=== PATIENT | female | born 1945 | race African-American/Black ===

== ENCOUNTER 2018-02-24 12:17 | Observation (INO) ==
[2018-02-24 13:25] LABS: Baso # (Auto) 0.1 th/mm3 (0.0-0.2); Baso % (Auto) 0.7 % (0.0-2.0); Eos # (Auto) 0.1 th/mm3 (0.0-0.4); Eos % (Auto) 1.7 % (0.0-4.0); Hematocrit 29.3 % (35.0-46.0); Lymph # (Auto) 2.6 th/mm3 (1.0-4.8); Mean Corpuscular HGB Conc 34.3 % (32.0-36.0); Mean Corpuscular Hemoglobin 33.3 pg (27.0-34.0); Mean Platelet Volume 8.2 fL (7.0-11.0); Mono # (Auto) 0.5 th/mm3 (0.0-0.9); Mono % (Auto) 7.3 % (0.0-8.0); Neut # (Auto) 3.5 th/mm3 (1.8-7.7); Neut % (Auto) 52.3 % (16.0-70.0); Platelet Count 205 th/mm3 (150-450); Red Blood Count 3.02 mil/mm3 (4.00-5.30); Red Cell Distribution Width 12.7 % (11.6-17.2); White Blood Count 6.8 th/mm3 (4.0-11.0)
[2018-02-24 13:48] LABS: Alanine Aminotransferase 15 U/L (10-53); Albumin 3.3 g/dL (3.4-5.0); Anion Gap 5 meq/L (5-15); Aspartate Aminotransferase 19 U/L (15-37); Blood Urea Nitrogen 25 mg/dL (7-18); Calcium 8.7 mg/dL (8.5-10.1); Chloride 106 meq/L (98-107); Glomerular Filtration Rate 42 mL/min (>89); Glucose,Random 121 mg/dL (74-106); Sodium 144 meq/L (136-145)
[2018-02-24 13:52] LABS: Alkaline Phosphatase 92 U/L (45-117); Total Protein 7.5 g/dL (6.4-8.2)
--- NOTE | 2018-02-24 13:55 | ED ---
HPI General Chief complaint: Chest Pain Stated complaint: chest pain Time Seen by Provider: 02/24/18 13:46 History of Present Illness HPI narrative: 72-year-old female with history of hypertension, diabetes, presents via EMS for evaluation of chest pain. Symptoms started at approximately 11:30 AM today while she was eating fast food with family members. She describes it as a sharp substernal/right-sided chest pain that radiated into the right arm. Symptoms lasted for approximately 30 minutes and then resolved spontaneously. Currently asymptomatic. She denies any dizziness , lightheadedness, shortness of breath, diaphoresis, nausea, vomiting, abdominal pain. Symptoms were moderate, no obvious aggravating or relieving factors. She has never experienced that type of pain before. She reports that she is allergic to aspirinshe reports that her dentist in the past told her that she is allergic to aspirin and she does not want to take any aspirin. She denies any known personal history of coronary artery disease however she does report positive family history maternally. She has no other complaints at this time. Related Data Allergies Allergy/AdvReac Type Severity Reaction Status Date / Time acetaminophen [From Tylenol] Allergy Rash Verified 02/24/18 12:29 Review of Systems ROS: all other systems reviewed are negative [facility] Social History Social History Substance History: No History of Abuse Smoking Status: Never smoker How Often Do You Have a Drink Containing Alcohol: Monthly or less Recent Travel in [facility] within the Last 8 Weeks: No Recent Out of Country Travel within the Last 8 Weeks: No Exam Narrative Exam Narrative: GENERAL: Pleasant well-developed well-nourished female no acute distress SKIN: Warm and dry. HEAD: Atraumatic. Normocephalic. EYES: Pupils equal and round. No scleral icterus. No injection or drainage. ENT: No nasal bleeding or discharge. Mucous membranes pink and moist. NECK: Trachea midline. No JVD. CARDIOVASCULAR: Regular rate and rhythm. No murmur appreciated. RESPIRATORY: No accessory muscle use. Clear to auscultation. Breath sounds equal bilaterally. GASTROINTESTINAL: Abdomen soft, non-tender, nondistended. Hepatic and splenic margins not palpable. MUSCULOSKELETAL: No obvious deformities. No clubbing. No cyanosis. No edema. NEUROLOGICAL: Awake and alert. No obvious cranial nerve deficits. Motor grossly within normal limits. Normal speech. PSYCHIATRIC: Appropriate mood and affect; insight and judgment normal. Course Initial Documented Vital Signs Temperature 98.5 F 02/24/18 12:20 Pulse Rate 98 H 02/24/18 12:20 Respiratory Rate 18 02/24/18 12:20 Blood Pressure 149/76 H 02/24/18 12:20 Pulse Oximetry 95 02/24/18 12:20 Last Documented Vital Signs Temperature 98.5 F 02/24/18 12:20 Pulse Rate 63 02/24/18 14:12 Respiratory Rate 23 02/24/18 14:12 Blood Pressure 184/77 H 02/24/18 14:12 Pulse Oximetry 100 02/24/18 14:12 Medical Decision Making MDM Narrative Medical decision making narrative: The patient was initially seen on the ambulance hallway. An EKG has been obtained revealing sinus rhythm with left bundle branch block, consistent with previous EKG in 2016. Lab work, chest x- ray been ordered. The patient's initial troponin is negative. Hemoglobin is 10. Potassium is 3, 40 mg oral potassium chloride ordered. BUN 25, creatinine 1.47. The patient's pain was atypical however she has a heart score of 5 and therefore given her risk factors the plan will be to admit her into the chest pain center for serial cardiac enzymes and rule out purposes. She is agreeable. Medical Screen Exam Complete: Yes Emergency Medical Condition: Yes Differential Diagnosis Differential Diagnosis: Atypical chest pain, acute coronary syndrome, angina, pneumothorax, hemothorax, costochondritis, gastritis, biliary colic, pancreatitis Lab Data Result diagrams: 02/24/18 12:50 02/24/18 12:50 Lab Results 02/24/18 02/24/18 02/24/18 Range/Units 12:50 12:50 12:50 WBC 6.8 (4.0-11.0) th/mm3 RBC 3.02 L (4.00-5.30) mil/mm3 Hgb 10.0 L (11.6-15.3) gm/dL Hct 29.3 L (35.0-46.0) % MCV 97.0 (80.0-100.0) fL MCH 33.3 (27.0-34.0) pg MCHC 34.3 (32.0-36.0) % RDW 12.7 (11.6-17.2) % Plt Count 205 (150-450) th/mm3 MPV 8.2 (7.0-11.0) fL Neut % (Auto) 52.3 (16.0-70.0) % Lymph % (Auto) 38.0 (9.0-44.0) % [place] % (Auto) 7.3 (0.0-8.0) % Eos % (Auto) 1.7 (0.0-4.0) % Baso % (Auto) 0.7 (0.0-2.0) % Neut # (Auto) 3.5 (1.8-7.7) th/mm3 Lymph # (Auto) 2.6 (1.0-4.8) th/mm3 [place] # (Auto) 0.5 (0.0-0.9) th/mm3 Eos # (Auto) 0.1 (0.0-0.4) th/mm3 Baso # (Auto) 0.1 (0.0-0.2) th/mm3 WBC Differential . Differential Comment Auto diff final Sodium 144 (136-145) meq/L Potassium 3.0 L (3.5-5.1) meq/L Chloride 106 (98-107) meq/L Carbon Dioxide 33.0 H (21.0-32.0) meq/L Anion Gap 5 (5-15) meq/L BUN 25 H (7-18) mg/dL Creatinine 1.47 H (0.50-1.00) mg/dL Estimated GFR 42 L (>89) mL/min Random Glucose 121 H (74-106) mg/dL Calcium 8.7 (8.5-10.1) mg/dL Magnesium 1.8 (1.5-2.5) mg/dL Total Bilirubin 0.7 (0.2-1.0) mg/dL AST 19 (15-37) U/L ALT 15 (10-53) U/L Alkaline Phosphatase 92 (45-117) U/L Troponin I Less than 0.02 L (0.02-0.05) ng/mL Total Protein 7.5 (6.4-8.2) g/dL Albumin 3.3 L (3.4-5.0) g/dL Lipase 100 (73-393) U/L Imaging Data Radiologist's impression: Chest X-Ray 02/24/18 13:47 CONCLUSION: Negative examination. Discharge Plan Discharge Disposition Patient Disposition: 30 Still Patient Discharge Condition Condition: Stable Discharge Details Diagnosis: Atypical chest pain, Hypokalemia Physicians Team ED Provider: Dennis Hong ED Midlevel Provider: Ryan Hannah Discharge Instructions Patient Printed Instructions: Chest Pain (ED) Status ED Status: With Doctor
--- NOTE | 2018-02-24 14:09 | XR ---
EXAM DATE: 02/24/2018 2:06 PM EST AGE/SEX: 72 years / Female INDICATIONS: Chest pain. CLINICAL DATA: This is the patient's initial encounter. Patient reports that signs and symptoms have been present for 1 day and indicates a pain score of Nonresponsive. MEDICAL/SURGICAL HISTORY: Non-responsive. Non-responsive. COMPARISON: No prior exams available for comparison. FINDINGS: A single AP view of the chest demonstrates the lungs to be symmetrically aerated without evidence of mass, infiltrate or effusion. The cardiomediastinal contours are unremarkable. Osseous structures a re intact. CONCLUSION: Negative examination. Electronically signed by: Josafat Jane MD 02/24/2018 2:07 PM EST
[2018-02-24 14:10] LABS: Magnesium 1.8 mg/dL (1.5-2.5)
[2018-02-24] MEDS ORDERED: Acetaminophen 500 MG Tablet PO PRN (15:05)
--- NOTE | 2018-02-24 15:52 | P.HPCA ---
History of Present Illness Primary Care Physician: Kesha Loyd DO Chief Complaint: Chest pain History of Present Illness: 72-year-old female with history of hypertension, left bundle branch block, hyperlipidemia, and GERD presents emergency room for further evaluation of nonexertional, sudden chest pain. Onset noon, after eating lunch. Location substernal and right anterior chest. Radiation to right shoulder/elbow. Characterizes as sharp. Moderate in severity. No associated symptoms of nausea, vomiting, dyspnea, or diaphoresis. Duration of intense pain 5-10 minutes, gradually and completely resolving after 15 minutes. No precipitating or relieving factors. Denies similar pain in the past. No further chest discomfort. No known heart disease. Denied burning sensation or sour taste. No recent illness or injury. Patient required redirection when obtaining history, looks to family members for answers of many questions. Daughter and brother at bedside assisting with medical history. Past cardiac testing No recent cardiac testing. No records of Lexiscan in [place] records. Does not follow with a bottle tester since Loop recorder removed in 2015. 11/23/2013 Echocardiogram-Estimated ejection fraction 55-60%. Systolic function normal. 11/22/2013 Carotids US-mild plaquing with no evidence of a hemodynamically significant lesion. Loop recorder placed 2013, removed 2015 Social history Known hypertension and hyperlipidemia. Reports "borderline" diabetes. No known coronary artery disease. Lifelong non-smoker. No alcohol or recreational drug use. Lives with daughter. Endorses having a large supportive family. Family history Noncontributory for early onset cardiovascular disease. Mother age 64-[place] Brother CABG age 68 - Diagnosis (1) Atypical chest pain (2) Hypertension (3) Hyperlipidemia (4) Anemia (5) Hypokalemia (6) Renal insufficiency Review of Systems All other systems reviewed negative except as stated in HPI PMFSH - History History Provided By: Patient, Family Member - Medical History Medical History: Medical History (Last Updated 02/24/18 @ 16:10 by AMALIA Agustin) Anemia Chronic back pain Chronic kidney disease GERD (gastroesophageal reflux disease) H/O: hysterectomy Hyperlipidemia Hypertension Left bundle branch block (LBBB) Osteoarthritis - Family History Family History: Family History (Last Updated 02/24/18 @ 16:10 by AMALIA Agustin) Mother Myocardial infarction Brother S/P CABG x 3 - Social History I have reviewed the patient's Social History: Yes - Tobacco History Second Hand Smoke Exposure: No Tobacco Use In Past 30 Days: No Smoking Status: Never smoker - Alcohol History How Often Do You Have a Drink Containing Alcohol: Monthly or less - Substance Use History Substance History: No History of Abuse - Travel History Recent Travel in the [place] Within the Last 8 Weeks: No Recent Travel Out of the Country Within the Last 8 Weeks: No - Immunization History Tetanus Immunization: <5 Years Medications and Allergies Active Medications: Active Medications Acetaminophen (Tylenol) 500 mg PO Q4H PRN PRN Reason: HEADACHE Nitroglycerin (Nitrostat Sl) 0.4 mg SL Q5M PRN PRN Reason: CHEST PAIN Ondansetron HCl (Zofran Inj) 4 mg IV.PUSH Q6H PRN PRN Reason: NAUSEA Sodium Chloride (Ns Flush) 2 ml IV.FLUSH BID JENNIFER Sodium Chloride (Ns Flush) 2 ml IV.FLUSH UNSCH PRN PRN Reason: FLUSH AFTER USING IV ACCESS Allergies Allergy/AdvReac Type Severity Reaction Status Date / Time No Known Allergies Allergy Verified 02/24/18 14:53 Home Medications Medication Instructions Recorded Confirmed Type amlodipine 10 mg PO DAILY 02/24/18 02/24/18 History donepezil 10 mg PO DAILY 02/24/18 02/24/18 History ergocalciferol (vitamin D2) 50,000 unit PO QWEEK 02/24/18 02/24/18 History [Vitamin D2] memantine 10 mg PO BID 02/24/18 02/24/18 History pantoprazole 40 mg PO DAILY 02/24/18 02/24/18 History potassium chloride 20 meq PO DAILY 02/24/18 02/24/18 History simvastatin 40 mg PO QPM 02/24/18 02/24/18 History trazodone 50 mg PO BID 02/24/18 02/24/18 History triamterene-hydrochlorothiazid 1 tab PO DAILY 02/24/18 02/24/18 History Exam Vital signs: Vital Signs 02/24/18 12:20 02/24/18 14:12 Temperature 98.5 F Pulse Rate 98 H 63 Respiratory Rate 18 23 Blood Pressure 149/76 H 184/77 H Pulse Oximetry 95 100 Intake & Output 02/23/18 02/24/18 02/24/18 18:59 06:59 18:59 Weight 220 kg Narrative: GENERAL: Alert WN, WD, NAD, pleasant, elderly obese -[place] female with some short-term memory loss HEAD: NC, AT EYES: Sclera clear, conjunctiva without injection, pupils equal and round ENT: Mucous membranes pink and moist, upper plate, lower dentures NECK: Supple, no masses, trachea midline CV: RRR, without murmur, rub, gallop, no JVD, S1-S2 no S3-S4. No carotid bruits. Chest wall nontender with palpation. RESP: Clear lungs throughout bilateral, no crackles, wheeze, rhonchi, symmetrical chest rise, nonlabored, able to speak in full sentences ABD: Soft, NT, ND, no masses, positive bowel tones BACK: No CVAT EXT: Pulses +2x4, no dependent edema MS: Normal tone x4 extremities, nontender, no obvious deformities, full range of motion NEURO: CN II through CN XII grossly intact, motor strength 5/5 PSYCH: A+O x3, pleasant affect, appropriate speech, appropriate mood, questionable insight and judgment, forgetful, difficult providing details of recent symptoms, able to recall past hospital visits with better detail SKIN: Normal turgor, normal texture, no lesions, no rashes, brisk cap refill Results 02/24/18 12:50 02/24/18 12:50 Cardiac Enzymes 02/24/18 Range/Units 12:50 AST 19 (15-37) U/L Troponin I Less than 0.02 L (0.02-0.05) ng/mL CBC 02/24/18 Range/Units 12:50 WBC 6.8 (4.0-11.0) th/mm3 RBC 3.02 L (4.00-5.30) mil/mm3 Hgb 10.0 L (11.6-15.3) gm/dL Hct 29.3 L (35.0-46.0) % Plt Count 205 (150-450) th/mm3 Neut # (Auto) 3.5 (1.8-7.7) th/mm3 Lymph # (Auto) 2.6 (1.0-4.8) th/mm3 [place] # (Auto) 0.5 (0.0-0.9) th/mm3 Eos # (Auto) 0.1 (0.0-0.4) th/mm3 Baso # (Auto) 0.1 (0.0-0.2) th/mm3 Comprehensive Metabolic Panel 02/24/18 Range/Units 12:50 Sodium 144 (136-145) meq/L Potassium 3.0 L (3.5-5.1) meq/L Chloride 106 (98-107) meq/L Carbon Dioxide 33.0 H (21.0-32.0) meq/L BUN 25 H (7-18) mg/dL Creatinine 1.47 H (0.50-1.00) mg/dL Calcium 8.7 (8.5-10.1) mg/dL AST 19 (15-37) U/L ALT 15 (10-53) U/L Alkaline Phosphatase 92 (45-117) U/L Total Protein 7.5 (6.4-8.2) g/dL Albumin 3.3 L (3.4-5.0) g/dL Intake and Output 02/24/18 02/24/18 02/24/18 06:59 14:59 22:59 Other: Weight 220 kg Patient Weight 02/25/18 06:59 Weight 220 kg - Imaging and Cardiology Imaging: Impressions Chest X-Ray 02/24/18 13:47 CONCLUSION: Negative examination. EKG interpretations - EKG EKG results cardiology: sinus rhythm (L BBB (not new)) Caprini VTE Risk Assessment Caprini VTE Risk Assessment: Moderate/High Risk (score >= 2) Caprini Risk Assessment Model: Point Value = 1 Point Value = 2 Point Value = 3 Point Value = 5 Age 41-60 Minor surgery BMI > 25 kg/m2 Swollen legs Varicose veins or History of unexplained or recurrent spontaneous Oral contraceptives or hormone replacement Sepsis (< 1 month) Serious lung disease, including pneumonia (< 1 month) Abnormal pulmonary function Acute myocardial infarction Congestive heart failure (< 1 month) History of inflammatory bowel disease Medical patient at bed rest Age 61-74 Arthroscopic surgery Major open surgery (> 45 min) Laparoscopic surgery (> 45 min) Malignancy Confined to bed (> 72 hours) Immobilizing plaster cast Central venous access Age >= 75 History of VTE Family history of VTE Factor V Leiden Prothrombin [id number] Lupus anticoagulant Anticardiolipin antibodies Elevated serum homocysteine Heparin-induced thrombocytopenia Other congenital or acquired thrombophilia Stroke (< 1 month) Elective arthroplasty Hip, pelvis, or leg fracture Acute spinal cord injury (< 1 month) Prophylaxis Regimen: Total Risk Factor Score Risk Level Prophylaxis Regimen 0-1 Low Early ambulation 2 Moderate Order ONE of the following: *Sequential Compression Device (SCD) *Heparin 5000 units SQ BID 3-4 Higher Order ONE of the following medications: *Heparin 5000 units SQ TID *Enoxaparin/Lovenox 40 mg SQ daily (WT < 150 kg, CrCl > 30 mL/min) *Enoxaparin/Lovenox 30 mg SQ daily (WT < 150 kg, CrCl > 10-29 mL/min) *Enoxaparin/Lovenox 30 mg SQ BID (WT < 150 kg, CrCl > 30 mL/min) AND/OR *Sequential Compression Device (SCD) 5 or more Highest Order ONE of the following medications: *Heparin 5000 units SQ TID (Preferred with Epidurals) *Enoxaparin/Lovenox 40 mg SQ daily (WT < 150 kg, CrCl > 30 mL/min) *Enoxaparin/Lovenox 30 mg SQ daily (WT < 150 kg, CrCl > 10-29 mL/min) *Enoxaparin/Lovenox 30 mg SQ BID (WT < 150 kg, CrCl > 30 mL/min) AND *Sequential Compression Device (SCD) Assessment and Plan - Assessment (1) Atypical chest pain Code(s): R07.89 - Other chest pain Status: Acute Plan: Admitted to chest pain center. Monitor on telemetry. Rule out ACS with 3 sets of EKGs and cardiac enzymes. Will be seen and evaluated by Dr. Ute Plascencia in morning. History of left bundle branch block. If cardiac testing recommended will require Lexiscan. This will be determined after evaluation by bottle tester. Discussed plan of care with patient, daughter, and brother was at bedside and all agreeable to plan of care. (2) Hypertension Code(s): I10 - Essential (primary) hypertension Status: Chronic Plan: Continue amlodipine. Continue to monitor. (3) Hyperlipidemia Code(s): E78.5 - Hyperlipidemia, unspecified Status: Chronic Plan: Continue simvastatin. (4) Anemia Code(s): D64.9 - Anemia, unspecified Status: Chronic Plan: Stable, compared with previous labs hemoglobin hematocrit improved. Anemia likely related to disease of chronic illness, follow up with primary care provider. (5) Hypokalemia Code(s): E87.6 - Hypokalemia Status: Acute Plan: 40 Meq KCL given in ER. (6) Renal insufficiency Code(s): N28.9 - Disorder of kidney and ureter, unspecified Status: Chronic Plan: Documented history of chronic kidney disease. Follow up with primary care provider as previously instructed. (2) Hypertension Qualifiers: Hypertension type: unspecified Qualified Code(s): I10 - Essential (primary) hypertension (3) Hyperlipidemia Qualifiers: Hyperlipidemia type: unspecified Qualified Code(s): E78.5 - Hyperlipidemia, unspecified (4) Anemia Qualifiers: Anemia type: unspecified type Qualified Code(s): D64.9 - Anemia, unspecified
[2018-02-24 16:52] LABS: Creatine Kinase 203 U/L (26-192)
[2018-02-24 17:04] LABS: CKMB Percent 0.5 % (0.0-4.0)
[2018-02-24 20:58] LABS: Creatine Kinase 168 U/L (26-192)
--- NOTE | 2018-02-25 08:37 | P.PNCA ---
Subjective Interval history: Offers no complaints. No further chest discomfort. Medications and Allergies Active Medications: Active Medications Acetaminophen (Tylenol) 500 mg PO Q4H PRN PRN Reason: HEADACHE Amlodipine Besylate (Norvasc) 10 mg PO DAILY [facility] Clonidine HCl (Catapres) 0.1 mg PO Q6H PRN PRN Reason: SYS BP GREATER THAN 180 MMHG Last Admin: 02/25/18 06:12 Dose: 0.1 mg Donepezil HCl (Aricept) 10 mg PO DAILY [facility] Memantine (Namenda) 10 mg PO BID [facility] Last Admin: 02/24/18 22:25 Dose: 10 mg Nitroglycerin (Nitrostat Sl) 0.4 mg SL Q5M PRN PRN Reason: CHEST PAIN Ondansetron HCl (Zofran Inj) 4 mg IV.PUSH Q6H PRN PRN Reason: NAUSEA Pantoprazole Sodium (Protonix) 40 mg PO DAILY [facility] Potassium Chloride (K-Dur) 20 meq PO DAILY [facility] Pravastatin Sodium (Pravachol) 80 mg PO QPM [facility] Last Admin: 02/24/18 18:37 Dose: 80 mg Sodium Chloride (Ns Flush) 2 ml IV.FLUSH BID [facility] Last Admin: 02/24/18 22:24 Dose: 2 ml Sodium Chloride (Ns Flush) 2 ml IV.FLUSH UNSCH PRN PRN Reason: FLUSH AFTER USING IV ACCESS Allergies Allergy/AdvReac Type Severity Reaction Status Date / Time No Known Allergies Allergy Verified 02/24/18 14:53 Home Medications Medication Instructions Recorded Confirmed Type amlodipine 10 mg PO DAILY 02/24/18 02/24/18 History donepezil 10 mg PO DAILY 02/24/18 02/24/18 History ergocalciferol (vitamin D2) 50,000 unit PO QWEEK 02/24/18 02/24/18 History [Vitamin D2] memantine 10 mg PO BID 02/24/18 02/24/18 History pantoprazole 40 mg PO DAILY 02/24/18 02/24/18 History potassium chloride 20 meq PO DAILY 02/24/18 02/24/18 History simvastatin 40 mg PO QPM 02/24/18 02/24/18 History trazodone 50 mg PO BID 02/24/18 02/24/18 History triamterene-hydrochlorothiazid 1 tab PO DAILY 02/24/18 02/24/18 History Physical Exam Vital signs: Vital Signs 02/24/18 12:20 02/24/18 14:12 02/24/18 15:00 Temperature 98.5 F Pulse Rate 98 H 63 56 L Respiratory Rate 18 23 18 Blood Pressure 149/76 H 184/77 H 173/77 H Pulse Oximetry 95 100 100 02/24/18 20:00 02/24/18 23:54 02/25/18 04:00 Temperature 98.3 F 97.6 F Pulse Rate 63 63 69 Respiratory Rate 16 17 17 Blood Pressure 151/92 H 175/78 H 193/97 H Pulse Oximetry 100 99 100 02/25/18 07:25 Temperature 98.7 F Pulse Rate 60 Respiratory Rate 16 Blood Pressure 138/63 Pulse Oximetry 100 Intake & Output 02/24/18 02/25/18 02/25/18 18:59 06:59 18:59 Weight 83.915 kg Other: Post Void Residual 0 Weight On Admission 83.915 kg - Constitutional no acute distress, cooperative - Routine HEENT Exam Head: Present: normocephalic, atraumatic - Routine Respiratory Exam Present: CTA bilaterally. Absent: rhonchi, stridor, wheezes, crackles - Routine Cardiovascular Exam Present: RRR. Absent: murmur, gallop, rubs - Routine Abdominal Exam Present: soft, normoactive bowel sounds Results 02/24/18 12:50 02/24/18 12:50 Cardiac Enzymes 02/24/18 02/24/18 02/24/18 Range/Units 12:50 15:50 19:55 AST 19 (15-37) U/L CK-MB (CK-2) Less than 1.0 (0.5-3.6) ng/mL Troponin I Less than 0.02 L Less than 0.02 L Less than 0.02 L (0.02-0.05) ng/mL CBC 02/24/18 Range/Units 12:50 WBC 6.8 (4.0-11.0) th/mm3 RBC 3.02 L (4.00-5.30) mil/mm3 Hgb 10.0 L (11.6-15.3) gm/dL Hct 29.3 L (35.0-46.0) % Plt Count 205 (150-450) th/mm3 Neut # (Auto) 3.5 (1.8-7.7) th/mm3 Lymph # (Auto) 2.6 (1.0-4.8) th/mm3 [place] # (Auto) 0.5 (0.0-0.9) th/mm3 Eos # (Auto) 0.1 (0.0-0.4) th/mm3 Baso # (Auto) 0.1 (0.0-0.2) th/mm3 Comprehensive Metabolic Panel 02/24/18 Range/Units 12:50 Sodium 144 (136-145) meq/L Potassium 3.0 L (3.5-5.1) meq/L Chloride 106 (98-107) meq/L Carbon Dioxide 33.0 H (21.0-32.0) meq/L BUN 25 H (7-18) mg/dL Creatinine 1.47 H (0.50-1.00) mg/dL Calcium 8.7 (8.5-10.1) mg/dL AST 19 (15-37) U/L ALT 15 (10-53) U/L Alkaline Phosphatase 92 (45-117) U/L Total Protein 7.5 (6.4-8.2) g/dL Albumin 3.3 L (3.4-5.0) g/dL Intake and Output 02/24/18 02/25/18 02/25/18 22:59 06:59 14:59 Other: Post Void Residual 0 Weight 83.915 kg Weight On Admission 83.915 kg - Imaging and Cardiology Imaging: Impressions Chest X-Ray 02/24/18 13:47 CONCLUSION: Negative examination. Assessment and Plan - Assessment (1) Atypical chest pain Code(s): R07.89 - Other chest pain Status: Acute Plan: Admitted to chest pain center. ACS ruled out 3 sets of EKGs and cardiac enzymes. Seen and evaluated by Dr. Ute Plascencia. Call placed to [facility] heart group to determine if she is an active patient in any recent testing that may have been completed. No recent cardiac testing, in fact no recorded stress testing. Last visit June 2016. Proceed with Lexiscan. If unremarkable, plans are to discharge home with follow-up with PCP. This is been discussed with family who is at bedside. (2) Hypertension Code(s): I10 - Essential (primary) hypertension Status: Chronic Plan: Continue amlodipine and triamterene/HCTZ. Continue to monitor. (3) Hyperlipidemia Code(s): E78.5 - Hyperlipidemia, unspecified Status: Chronic Plan: Continue simvastatin. (4) Anemia Code(s): D64.9 - Anemia, unspecified Status: Chronic Plan: Stable, compared with previous labs hemoglobin hematocrit improved. Anemia likely related to disease of chronic illness, follow up with primary care provider. (5) Hypokalemia Code(s): E87.6 - Hypokalemia Status: Acute Plan: 40 Meq KCL given in ER. (6) Renal insufficiency Code(s): N28.9 - Disorder of kidney and ureter, unspecified Status: Chronic Plan: Documented history of chronic kidney disease. Follow up with primary care provider as previously instructed. (2) Hypertension Qualifiers: Hypertension type: unspecified Qualified Code(s): I10 - Essential (primary) hypertension (3) Hyperlipidemia Qualifiers: Hyperlipidemia type: unspecified Qualified Code(s): E78.5 - Hyperlipidemia, unspecified (4) Anemia Qualifiers: Anemia type: unspecified type Qualified Code(s): D64.9 - Anemia, unspecified
[2018-02-25] MEDS: amLODIPine 10 MG Tablet PO SCH (09:05)
--- NOTE | 2018-02-25 12:29 | P.PNCA ---
Subjective Interval history: 1155 Received call from RN taking care of Mrs. Jane. Reportedly patient became symptomatic with heart rate in the mid 30s, becoming unresponsive. transmission technician stated patient not yet injected, become unresponsive prior to injection of Myoview. Dave called, upon entering room patient alert to self and place, able to answer questions, appeared drowsy and pale. Manual blood pressure reported 142/80, heart rate between 36-52. Patient rhythm viewed on stress monitor, suggesting normal sinus bradycardic rhythm with left BBB ( LBBB not new to patient). Unfortunately event was not recorded, nor was rhythm during Halicat. Call placed to Dr. Plascencia and decision to transfer patient to [facility] was made. Charge nurse reports no bed available in [facility], however [place] [facility] [place] Son called and notified. [address] Mata who agrees to resume care of patient. EKG strips located and printed, patient was still on telemetry during event. Will have strips placed on patient's chart. Medications and Allergies Active Medications: Active Medications Acetaminophen (Tylenol) 500 mg PO Q4H PRN PRN Reason: HEADACHE Amlodipine Besylate (Norvasc) 10 mg PO DAILY [facility] Last Admin: 02/25/18 09:05 Dose: 10 mg Clonidine HCl (Catapres) 0.1 mg PO Q6H PRN PRN Reason: SYS BP GREATER THAN 180 [facility] Last Admin: 02/25/18 06:12 Dose: 0.1 mg Donepezil HCl (Aricept) 10 mg PO DAILY [facility] Last Admin: 02/25/18 09:06 Dose: 10 mg Memantine (Namenda) 10 mg PO BID [facility] Last Admin: 02/25/18 09:06 Dose: 10 mg Nitroglycerin (Nitrostat Sl) 0.4 mg SL Q5M PRN PRN Reason: CHEST PAIN Ondansetron HCl (Zofran Inj) 4 mg IV.PUSH Q6H PRN PRN Reason: NAUSEA Pantoprazole Sodium (Protonix) 40 mg PO DAILY [facility] Last Admin: 02/25/18 09:05 Dose: 40 mg Potassium Chloride (K-Dur) 20 meq PO DAILY [facility] Last Admin: 02/25/18 09:06 Dose: 20 meq Pravastatin Sodium (Pravachol) 80 mg PO QPM [facility] Last Admin: 02/24/18 18:37 Dose: 80 mg Sodium Chloride (Ns Flush) 2 ml IV.FLUSH BID [facility] Last Admin: 02/25/18 09:06 Dose: 2 ml Sodium Chloride (Ns Flush) 2 ml IV.FLUSH UNSCH PRN PRN Reason: FLUSH AFTER USING IV ACCESS Allergies Allergy/AdvReac Type Severity Reaction Status Date / Time No Known Allergies Allergy Verified 02/24/18 14:53 Home Medications Medication Instructions Recorded Confirmed Type amlodipine 10 mg PO DAILY 02/24/18 02/24/18 History donepezil 10 mg PO DAILY 02/24/18 02/24/18 History ergocalciferol (vitamin D2) 50,000 unit PO QWEEK 02/24/18 02/24/18 History [Vitamin D2] memantine 10 mg PO BID 02/24/18 02/24/18 History pantoprazole 40 mg PO DAILY 02/24/18 02/24/18 History potassium chloride 20 meq PO DAILY 02/24/18 02/24/18 History simvastatin 40 mg PO QPM 02/24/18 02/24/18 History trazodone 50 mg PO BID 02/24/18 02/24/18 History triamterene-hydrochlorothiazid 1 tab PO DAILY 02/24/18 02/24/18 History Physical Exam Vital signs: Vital Signs 02/24/18 14:12 02/24/18 15:00 02/24/18 20:00 Temperature Pulse Rate 63 56 L 63 Respiratory Rate 23 18 16 Blood Pressure 184/77 H 173/77 H 151/92 H Pulse Oximetry 100 100 100 02/24/18 23:54 02/25/18 04:00 02/25/18 07:13 Temperature 98.3 F 97.6 F Pulse Rate 63 69 57 L Respiratory Rate 17 17 Blood Pressure 175/78 H 193/97 H Pulse Oximetry 99 100 02/25/18 07:25 02/25/18 12:09 Temperature 98.7 F Pulse Rate 60 Respiratory Rate 16 Blood Pressure 138/63 Pulse Oximetry 100 98 Intake & Output 02/24/18 02/25/18 02/25/18 18:59 06:59 18:59 Weight 83.915 kg Other: Post Void Residual 0 Weight On Admission 83.915 kg Results 02/24/18 12:50 02/24/18 12:50 Cardiac Enzymes 02/24/18 02/24/18 02/24/18 Range/Units 12:50 15:50 19:55 AST 19 (15-37) U/L CK-MB (CK-2) Less than 1.0 (0.5-3.6) ng/mL Troponin I Less than 0.02 L Less than 0.02 L Less than 0.02 L (0.02-0.05) ng/mL CBC 02/24/18 Range/Units 12:50 WBC 6.8 (4.0-11.0) th/mm3 RBC 3.02 L (4.00-5.30) mil/mm3 Hgb 10.0 L (11.6-15.3) gm/dL Hct 29.3 L (35.0-46.0) % Plt Count 205 (150-450) th/mm3 Neut # (Auto) 3.5 (1.8-7.7) th/mm3 Lymph # (Auto) 2.6 (1.0-4.8) th/mm3 [place] # (Auto) 0.5 (0.0-0.9) th/mm3 Eos # (Auto) 0.1 (0.0-0.4) th/mm3 Baso # (Auto) 0.1 (0.0-0.2) th/mm3 Comprehensive Metabolic Panel 02/24/18 Range/Units 12:50 Sodium 144 (136-145) meq/L Potassium 3.0 L (3.5-5.1) meq/L Chloride 106 (98-107) meq/L Carbon Dioxide 33.0 H (21.0-32.0) meq/L BUN 25 H (7-18) mg/dL Creatinine 1.47 H (0.50-1.00) mg/dL Calcium 8.7 (8.5-10.1) mg/dL AST 19 (15-37) U/L ALT 15 (10-53) U/L Alkaline Phosphatase 92 (45-117) U/L Total Protein 7.5 (6.4-8.2) g/dL Albumin 3.3 L (3.4-5.0) g/dL Intake and Output 02/24/18 02/25/18 02/25/18 22:59 06:59 14:59 Other: Post Void Residual 0 Weight 83.915 kg Weight On Admission 83.915 kg - Imaging and Cardiology Imaging: Impressions Chest X-Ray 02/24/18 13:47 CONCLUSION: Negative examination. Assessment and Plan - Assessment (1) Atypical chest pain Code(s): R07.89 - Other chest pain Status: Acute Plan: Admitted to chest pain center. ACS ruled out 3 sets of EKGs and cardiac enzymes. Seen and evaluated by Dr. Ute Plascencia. Call placed to [facility] to determine if she is an active patient in any recent testing that may have been completed. No recent cardiac testing, in fact no recorded stress testing. Last visit June 2016. Proceed with Lexiscan. If unremarkable, plans are to discharge home with follow-up with PCP. This is been discussed with family who is at bedside. (2) Hypertension Code(s): I10 - Essential (primary) hypertension Status: Chronic Plan: Continue amlodipine and triamterene/HCTZ. Continue to monitor. (3) Hyperlipidemia Code(s): E78.5 - Hyperlipidemia, unspecified Status: Chronic Plan: Continue simvastatin. (4) Anemia Code(s): D64.9 - Anemia, unspecified Status: Chronic Plan: Stable, compared with previous labs hemoglobin hematocrit improved. Anemia likely related to disease of chronic illness, follow up with primary care provider. (5) Hypokalemia Code(s): E87.6 - Hypokalemia Status: Acute Plan: 40 Meq KCL given in ER. (6) Renal insufficiency Code(s): N28.9 - Disorder of kidney and ureter, unspecified Status: Chronic Plan: Documented history of chronic kidney disease. Follow up with primary care provider as previously instructed. (2) Hypertension Qualifiers: Hypertension type: unspecified Qualified Code(s): I10 - Essential (primary) hypertension (3) Hyperlipidemia Qualifiers: Hyperlipidemia type: unspecified Qualified Code(s): E78.5 - Hyperlipidemia, unspecified (4) Anemia Qualifiers: Anemia type: unspecified type Qualified Code(s): D64.9 - Anemia, unspecified
--- NOTE | 2018-02-25 13:57 | P.CONIM ---
History of Present Illness Service: Chest pain center Consult date: 02/25/18 Requesting Physician: Ute Plascencia Reason for Consult: medical management Primary Care Provider: Kesha Loyd DO Chief Complaint: Chest pain History of Present Illness: This is a 72-year-old female with history of hypertension, left bundle branch block, dyslipidemia and GERD presented to the hospital for chest pain, radiating to right shoulder and elbow, substernal, characterized as sharp. Patient was initially admitted at the chest pain center, initial workup was negative. Patient was supposed to get a Lexiscan this morning, however about 15 minutes before noon while getting her Lexiscan, she started having bradycardia to the 40s, associated with dizziness, lightheadedness and generalized weakness. Figueroa was called and [place] [facility] [place] She did not have any chest pain this morning or anytime today. She also denies any palpitations. She had a loop recorder placed in 2013 which was removed 2015. Presently, [place] [facility] heart rate is in the high 50s, allegedly went down into high 30s and started becoming sleepy but nurse started talking to her and the heart rate went back up. Review of Systems All other pertinent systems were reviewed and are negative. [facility] - History History Provided By: Patient, Family Member - Medical History Medical History: Medical History (Last Reviewed 02/25/18 @ 13:51 by Elpidio Mata MD) Anemia Chronic back pain Chronic kidney disease GERD (gastroesophageal reflux disease) H/O: hysterectomy Hyperlipidemia Hypertension Left bundle branch block (LBBB) Osteoarthritis - Family History Family History: Family History (Last Reviewed 02/25/18 @ 13:51 by Elpidio Mata MD) Mother Myocardial infarction Brother S/P CABG x 3 - Social History I have reviewed the patient's Social History: Yes - Tobacco History Second Hand Smoke Exposure: No Tobacco Use In Past 30 Days: No Smoking Status: Never smoker - Alcohol History How Often Do You Have a Drink Containing Alcohol: Monthly or less - Substance Use History Substance History: No History of Abuse - Travel History Recent Travel in the [place] Within the Last 8 Weeks: No Recent Travel Out of the Country Within the Last 8 Weeks: No - Immunization History Tetanus Immunization: <5 Years Medications and Allergies Active Medications: Active Medications Acetaminophen (Tylenol) 500 mg PO Q4H PRN PRN Reason: HEADACHE Amlodipine Besylate (Norvasc) 10 mg PO DAILY [facility] Last Admin: 02/25/18 09:05 Dose: 10 mg Clonidine HCl (Catapres) 0.1 mg PO Q6H PRN PRN Reason: SYS BP GREATER THAN 180 [facility] Last Admin: 02/25/18 06:12 Dose: 0.1 mg Donepezil HCl (Aricept) 10 mg PO DAILY [facility] Last Admin: 02/25/18 09:06 Dose: 10 mg Memantine (Namenda) 10 mg PO BID [facility] Last Admin: 02/25/18 09:06 Dose: 10 mg Nitroglycerin (Nitrostat Sl) 0.4 mg SL Q5M PRN PRN Reason: CHEST PAIN Ondansetron HCl (Zofran Inj) 4 mg IV.PUSH Q6H PRN PRN Reason: NAUSEA Pantoprazole Sodium (Protonix) 40 mg PO DAILY [facility] Last Admin: 02/25/18 09:05 Dose: 40 mg Potassium Chloride (K-Dur) 20 meq PO DAILY [facility] Last Admin: 02/25/18 09:06 Dose: 20 meq Pravastatin Sodium (Pravachol) 80 mg PO QPM [facility] Last Admin: 02/24/18 18:37 Dose: 80 mg Sodium Chloride (Ns Flush) 2 ml IV.FLUSH BID [facility] Last Admin: 02/25/18 09:06 Dose: 2 ml Sodium Chloride (Ns Flush) 2 ml IV.FLUSH UNSCH PRN PRN Reason: FLUSH AFTER USING IV ACCESS Allergies Allergy/AdvReac Type Severity Reaction Status Date / Time No Known Allergies Allergy Verified 02/24/18 14:53 Home Medications Medication Instructions Recorded Confirmed Type amlodipine 10 mg PO DAILY 02/24/18 02/24/18 History donepezil 10 mg PO DAILY 02/24/18 02/24/18 History ergocalciferol (vitamin D2) 50,000 unit PO QWEEK 02/24/18 02/24/18 History [Vitamin D2] memantine 10 mg PO BID 02/24/18 02/24/18 History pantoprazole 40 mg PO DAILY 02/24/18 02/24/18 History potassium chloride 20 meq PO DAILY 02/24/18 02/24/18 History simvastatin 40 mg PO QPM 02/24/18 02/24/18 History trazodone 50 mg PO BID 02/24/18 02/24/18 History triamterene-hydrochlorothiazid 1 tab PO DAILY 02/24/18 02/24/18 History Exam Vital signs: Vital Signs 02/24/18 14:12 02/24/18 15:00 02/24/18 20:00 Temperature Pulse Rate 63 56 L 63 Respiratory Rate 23 18 16 Blood Pressure 184/77 H 173/77 H 151/92 H Pulse Oximetry 100 100 100 02/24/18 23:54 02/25/18 04:00 02/25/18 07:13 Temperature 98.3 F 97.6 F Pulse Rate 63 69 57 L Respiratory Rate 17 17 Blood Pressure 175/78 H 193/97 H Pulse Oximetry 99 100 02/25/18 07:25 02/25/18 12:00 02/25/18 12:09 Temperature 98.7 F 98.4 F Pulse Rate 60 39 L Respiratory Rate 16 15 Blood Pressure 138/63 171/71 H Pulse Oximetry 100 100 98 Intake & Output 02/24/18 02/25/18 02/25/18 18:59 06:59 18:59 Weight 83.915 kg Other: Post Void Residual 0 Weight On Admission 83.915 kg Narrative: GENERAL: Not in acute distress, well-nourished. Awake and alert. HEAD: Atraumatic. Normocephalic. No temporal or scalp tenderness. EYES: PERRL, full EOMs, no jaundice, nonicteric, pink conjunctivae without injection, moist mucosa ENT: Nose without bleeding, purulent drainage. NECK: Trachea midline, no mass, no obvious thyromegaly. CARDIOVASCULAR: Regular rate, bradycardic, no murmurs or gallops. RESPIRATORY: Clear to auscultation with normal respiratory effort. Breath sounds equal bilaterally. No use of accessory muscles of respiration. GASTROINTESTINAL: Abdomen soft, normal bowel sounds, non-tender, nondistended. No hepato-splenomegaly or palpable mass. No guarding. MANISHA and exam deferred. MUSCULOSKELETAL: Extremities without clubbing, cyanosis, or edema. No joint tenderness. No calf tenderness. Distal pulses intact, 2+ bilaterally. INTEGUMENTARY: Warm and dry, no rash of generalized distribution. NEUROLOGICAL: Awake, alert, oriented 3. No obvious cranial nerve deficits. Moves all 4 extremities, muscle strength testing 5 over 5. Motor and sensory grossly within normal limits. .Supple neck, no meningeal signs. Grossly negative cerebellar examination. No focal neurologic deficits. Results - Labs CBC & Chem 7: 02/24/18 12:50 02/24/18 12:50 Labs: Laboratory Results - last 24 hr 02/24/18 02/24/18 02/24/18 12:50 12:50 15:50 Sodium 144 Potassium 3.0 L Chloride 106 Carbon Dioxide 33.0 H Anion Gap 5 BUN 25 H Creatinine 1.47 H Estimated GFR 42 L POC Glucose Random Glucose 121 H Calcium 8.7 Magnesium 1.8 Total Bilirubin 0.7 AST 19 ALT 15 Alkaline Phosphatase 92 Total Creatine Kinase 203 H CK-MB (CK-2) Less than 1.0 CK-MB (CK-2) % 0.5 Troponin I Less than 0.02 L Less than 0.02 L Total Protein 7.5 Albumin 3.3 L Lipase 100 02/24/18 02/24/18 02/25/18 19:55 22:23 12:44 Sodium Potassium Chloride Carbon Dioxide Anion Gap BUN Creatinine Estimated GFR POC Glucose 137 H 91 Random Glucose Calcium Magnesium Total Bilirubin AST ALT Alkaline Phosphatase Total Creatine Kinase 168 CK-MB (CK-2) CK-MB (CK-2) % Troponin I Less than 0.02 L Total Protein Albumin Lipase - Imaging Impressions Chest X-Ray 02/24/18 13:47 CONCLUSION: Negative examination. Assessment and Plan - Plan This is a 72-year-old female with history of hypertension, and dyslipidemia presenting with a typical chest pain and now admitted because of bradycardia Sinus bradycardia-unknown etiology, repeat EKG serially and troponin, keep in [facility] for close monitoring, might need temporary pacer, start dopamine or epinephrine if continues to be bradycardic, consult cardiology. Of note, she had a loop recorder that was removed in 2016 Typical chest pain-ACS ruled out with 3 sets of EKG and cardiac enzymes. For Lexiscan however became bradycardic. Check magnesium. Hypertension-continue Norvasc and triamterene/hydrochlorothiazide. Dyslipidemia-continue simvastatin Anemia-stable Hypokalemia-replace, recheck, check magnesium. Chronic renal insufficiency-baseline unknown, recheck BMP DVT prophylaxis: Start heparin
[2018-02-25] MEDS ORDERED: hydrALAZINE HCl Inj 20 MG/ML Vial IV.PUSH PRN (14:21)
[2018-02-25] MEDS ORDERED: Atropine Inj 1 MG/ML Vial IV.PUSH PRN (14:21)
[2018-02-25] MEDS: Heparin - SQ 10,000 UNITS/ML Vial SQ SCH ×2 (16:12→22:24)
--- NOTE | 2018-02-25 17:02 | ECG ---
Date Performed: 02/24/2018 Time Performed: 22:10:50 PTAGE: 72 years EKG: Sinus rhythm LEFT BUNDLE BRANCH BLOCK ABNORMAL ECG Since PREVIOUS TRACING , no significant change noted PREVIOUS TRACIN02/24/2018 15.47 DOCTOR: Ute Plascencia Interpretating Date/Time 02/25/2018 17:01:35
--- NOTE | 2018-02-25 17:03 | ECG ---
Date Performed: 02/24/2018 Time Performed: 12:39:07 PTAGE: 72 years EKG: Sinus rhythm LEFT BUNDLE BRANCH BLOCK ABNORMAL ECG Since PREVIOUS TRACING , no significant change noted DOCTOR: Ute Plascencia Interpretating Date/Time 02/25/2018 17:03:22
--- NOTE | 2018-02-25 17:03 | ECG ---
Date Performed: 02/24/2018 Time Performed: 15:47:22 PTAGE: 72 years EKG: SINUS BRADYCARDIA INTRAVENTRICULAR CONDUCTION DELAY ABNORMAL ECG Since PREVIOUS TRACING , no significant change noted PREVIOUS TRACIN02/24/2018 12.39 DOCTOR: Ute Plascencia Interpretating Date/Time 02/25/2018 17:02:55
--- NOTE | 2018-02-25 19:18 | MB ---
cc: Bruce Milton MD DATE: 02/25/2018 REASON FOR CONSULTATION: Evaluation of bradycardia. HISTORY OF PRESENT ILLNESS: Yajaira Jane is a 72-year-old female admitted to the hospital on 02/24/2018. She apparently just finished eating. Her daughters were in the room and were able to tell me that she then had her episode. It was a sharp pain starting substernally and radiating right as far as her arm above her elbow. It was severe pain that almost made her cry. It lasted about 15 minutes and stopped. She had never had pain like that before. She has lots of arthritis in her hips and knees and back, but has never had pain like this before. She has no prior history of heart disease. She has a chronic left bundle branch block. Back in 2013, she had a near-syncopal episode. EP study was negative. A loop recorder was implanted and subsequently removed after no events. She had mild plaquing on a carotid Doppler and a normal echo at that time. This morning, the patient was scheduled to have a Lexiscan nuclear stress test. She was down in the radiology department and from what the nurse told me, she got her radioisotope and did not actually receive Lexiscan. Gabbie was called because she had an episode of where she was drowsy and somewhat unresponsive and had sinus bradycardia down, I am told, into the 30s, although most of what is see on the telemetry strips is around 40. After a transfer to ICU, the nurse taking care of her said she was excessively drowsy and every time she would wake up, her heart rate would come back up, but as she would get sleepy, her heart rate would go back down. She did receive a dose of clonidine at 6:12 a.m. this morning. Blood pressure has been elevated. She has also received some doses of hydralazine. The patient has dementia. She is very pleasant and cooperative, but really cannot provide any dates, rambles excessively and really cannot provide any details about any of her symptoms. Her daughters were present and could not add much additional history as well. She apparently has never had syncope or presyncope at home. She did have the episode back in 2013 as described. PAST MEDICAL HISTORY: Includes chronic renal disease, sedentary behavior, hypertension, hyperlipidemia, left bundle branch block, gastroesophageal reflux disease. PAST SURGICAL HISTORY: Includes loop recorder implant and then subsequent removal, EP study, hysterectomy. SOCIAL HISTORY: Her , leaving her . Sedentary behavior. PHYSICAL EXAMINATION: GENERAL: Reveals an obese, pleasant female. She does not appear to be in any acute distress. VITAL SIGNS: Systolic blood pressure has been mildly elevated. She is currently in normal sinus rhythm. She had sinus bradycardia earlier today. HEENT: Unremarkable. NECK: No JVD. No bruits. CHEST: Clear to auscultation. CARDIOVASCULAR: S1, S2, regular rate and rhythm, maybe a 1/6 systolic ejection murmur. ABDOMEN: Soft, nontender. EXTREMITIES: No clubbing, cyanosis or edema. Pulses are adequate. LABORATORY DATA: EKG shows sinus rhythm with a left bundle branch block. Troponins are negative. Creatinine is 1.47. IMPRESSION: Transient bradycardia spell with excessive drowsiness. She now has recovered. This was after receiving clonidine this morning and radioisotopes. I am not seeing any bradycardia at present. The only similar episode she had was back in 2003. Her chest pain is exceedingly atypical. RECOMMENDATIONS: I do not think we should try to repeat the Lexiscan nuclear stress considering the reaction she has had, but would also discontinue her clonidine. We can use hydralazine and amlodipine for her blood pressure. We would like to observe her in the hospital to see if she has any recurrent episodes. At the present time, she appears stable. We will follow. MD JOHN Dixon/ivan , 06:39 PM , 06:51 PM
[2018-02-25] MEDS: hydrALAZINE 25 MG Tablet PO SCH (20:47)
[2018-02-25 21:28] LABS: Anion Gap 9 meq/L (5-15); Blood Urea Nitrogen 17 mg/dL (7-18); Calcium 8.4 mg/dL (8.5-10.1); Carbon Dioxide 27.6 meq/L (21.0-32.0); Chloride 106 meq/L (98-107); Glomerular Filtration Rate 65 mL/min (>89); Glucose,Random 73 mg/dL (74-106); Sodium 143 meq/L (136-145)
[2018-02-25 21:31] LABS: Creatine Kinase 143 U/L (26-192)
[2018-02-26 00:09] VITALS: RESP 12
[2018-02-26 02:14] LABS: Creatine Kinase 146 U/L (26-192)
[2018-02-26] MEDS ORDERED: Chlorhexidine Gluconate 2% 1 Pack (2 Cloths) TOPICAL PRN ×2 (04:00)
[2018-02-26] MEDS ORDERED: Chlorhexidine Gluconate 2% 1 Pack (2 Cloths) TOPICAL SCH ×2 (04:00)
[2018-02-26 05:12] VITALS: O2SAT 99
[2018-02-26] MEDS: Heparin - SQ 10,000 UNITS/ML Vial SQ SCH (06:07)
--- NOTE | 2018-02-26 07:50 | P.PNCA ---
Subjective Interval history: No chest pain, dizziness, SOB or other complaints Medications and Allergies Active Medications: Active Medications Acetaminophen (Tylenol) 500 mg PO Q4H PRN PRN Reason: HEADACHE Amlodipine Besylate (Norvasc) 10 mg PO DAILY REPLACED BY [facility] Last Admin: 02/25/18 09:05 Dose: 10 mg Atropine Sulfate (Atropine Inj) 0.5 mg IV.PUSH Q5M PRN PRN Reason: For HR<30 and call Chlorhexidine Gluconate (Chlorhexidine 2% Cloth) 3 pack TOPICAL DAILY@0400 REPLACED BY [facility] Stop: 03/03/18 03:59 Last Admin: 02/26/18 04:17 Dose: 3 pack Chlorhexidine Gluconate (Chlorhexidine 2% Cloth) 3 pack TOPICAL DAILY@0400 PRN PRN Reason: Extra cloth needed Stop: 03/03/18 03:59 Donepezil HCl (Aricept) 10 mg PO DAILY REPLACED BY [facility] Last Admin: 02/25/18 09:06 Dose: 10 mg Heparin Sodium (Porcine) (Heparin Inj) 5,000 units SQ Q8H REPLACED BY [facility] Last Admin: 02/26/18 06:07 Dose: 5,000 units Hydralazine HCl (Apresoline Inj) 10 mg IV.PUSH Q30M PRN PRN Reason: SYS BP GREATER THAN 170 [facility] Last Admin: 02/25/18 16:13 Dose: 10 mg Hydralazine HCl (Apresoline) 25 mg PO TID REPLACED BY [facility] Last Admin: 02/25/18 20:47 Dose: 25 mg Memantine (Namenda) 10 mg PO BID REPLACED BY [facility] Last Admin: 02/25/18 20:45 Dose: 10 mg Nitroglycerin (Nitrostat Sl) 0.4 mg SL Q5M PRN PRN Reason: CHEST PAIN Ondansetron HCl (Zofran Inj) 4 mg IV.PUSH Q6H PRN PRN Reason: NAUSEA Pantoprazole Sodium (Protonix) 40 mg PO DAILY REPLACED BY [facility] Last Admin: 02/25/18 09:05 Dose: 40 mg Potassium Chloride (K-Dur) 20 meq PO DAILY REPLACED BY [facility] Last Admin: 02/25/18 09:06 Dose: 20 meq Pravastatin Sodium (Pravachol) 80 mg PO QPM REPLACED BY [facility] Last Admin: 02/25/18 17:54 Dose: 80 mg Sodium Chloride (Ns Flush) 2 ml IV.FLUSH BID REPLACED BY [facility] Last Admin: 02/25/18 20:45 Dose: 2 ml Sodium Chloride (Ns Flush) 2 ml IV.FLUSH UNSCH PRN PRN Reason: FLUSH AFTER USING IV ACCESS Allergies Allergy/AdvReac Type Severity Reaction Status Date / Time No Known Allergies Allergy Verified 02/24/18 14:53 Home Medications Medication Instructions Recorded Confirmed Type amlodipine 10 mg PO DAILY 02/24/18 02/24/18 History donepezil 10 mg PO DAILY 02/24/18 02/24/18 History ergocalciferol (vitamin D2) 50,000 unit PO QWEEK 02/24/18 02/24/18 History [Vitamin D2] memantine 10 mg PO BID 02/24/18 02/24/18 History pantoprazole 40 mg PO DAILY 02/24/18 02/24/18 History potassium chloride 20 meq PO DAILY 02/24/18 02/24/18 History simvastatin 40 mg PO QPM 02/24/18 02/24/18 History trazodone 50 mg PO BID 02/24/18 02/24/18 History triamterene-hydrochlorothiazid 1 tab PO DAILY 02/24/18 02/24/18 History Physical Exam Vital signs: Vital Signs 02/25/18 12:00 02/25/18 12:09 02/25/18 16:00 Temperature 98.4 F 98.1 F Pulse Rate 39 L 51 L Respiratory Rate 15 15 Blood Pressure 171/71 H 158/70 H Pulse Oximetry 100 98 100 02/25/18 20:00 02/25/18 21:17 02/25/18 22:00 Temperature 98.5 F Pulse Rate 50 L 50 L 66 Respiratory Rate 14 19 Blood Pressure 155/94 H Pulse Oximetry 02/25/18 23:00 02/25/18 23:01 02/26/18 00:00 Temperature 98.2 F Pulse Rate 49 L 50 L 50 L Respiratory Rate 13 13 12 Blood Pressure 141/65 H 144/65 H Pulse Oximetry 100 100 100 02/26/18 01:00 02/26/18 02:00 02/26/18 02:12 Temperature 98 F Pulse Rate 60 47 L 49 L Respiratory Rate 15 15 16 Blood Pressure 141/73 H 142/66 H Pulse Oximetry 100 100 100 02/26/18 03:00 02/26/18 03:01 02/26/18 03:32 Temperature Pulse Rate 50 L 51 L 61 Respiratory Rate 16 25 H 14 Blood Pressure 184/77 H 184/80 H Pulse Oximetry 100 100 100 02/26/18 03:55 02/26/18 04:00 02/26/18 05:00 Temperature Pulse Rate 72 68 67 Respiratory Rate 21 16 12 Blood Pressure 165/72 H Pulse Oximetry 100 100 99 Intake & Output 02/25/18 02/26/18 02/26/18 18:59 06:59 18:59 Output Total 1000 / 1000 400 / 400 Balance -1000 / -1000 -400 / -400 Weight 75.5 kg 75.5 kg Output: Urine 1000 / 1000 Urine Amount (Catheter) 400 / 400 Female External 400 / 400 Other: # Bowel Movements 0 Narrative: Mild sinus brandon during sleep. Alert No JVD Chest clear CV S1S2 RRR Ect No CCE - Urinary Catheter Management Female External Cath placed during this visit: no Results 02/24/18 12:50 02/25/18 20:36 Cardiac Enzymes 02/24/18 02/24/18 02/24/18 Range/Units 12:50 15:50 19:55 AST 19 (15-37) U/L CK-MB (CK-2) Less than 1.0 (0.5-3.6) ng/mL Troponin I Less than 0.02 L Less than 0.02 L Less than 0.02 L (0.02-0.05) ng/mL 02/25/18 02/26/18 Range/Units 20:36 01:32 AST (15-37) U/L CK-MB (CK-2) (0.5-3.6) ng/mL Troponin I Less than 0.02 L Less than 0.02 L (0.02-0.05) ng/mL CBC 02/24/18 Range/Units 12:50 WBC 6.8 (4.0-11.0) th/mm3 RBC 3.02 L (4.00-5.30) mil/mm3 Hgb 10.0 L (11.6-15.3) gm/dL Hct 29.3 L (35.0-46.0) % Plt Count 205 (150-450) th/mm3 Neut # (Auto) 3.5 (1.8-7.7) th/mm3 Lymph # (Auto) 2.6 (1.0-4.8) th/mm3 [place] # (Auto) 0.5 (0.0-0.9) th/mm3 Eos # (Auto) 0.1 (0.0-0.4) th/mm3 Baso # (Auto) 0.1 (0.0-0.2) th/mm3 Comprehensive Metabolic Panel 02/24/18 02/25/18 Range/Units 12:50 20:36 Sodium 144 143 (136-145) meq/L Potassium 3.0 L 3.0 L (3.5-5.1) meq/L Chloride 106 106 (98-107) meq/L Carbon Dioxide 33.0 H 27.6 (21.0-32.0) meq/L BUN 25 H 17 (7-18) mg/dL Creatinine 1.47 H 1.01 H (0.50-1.00) mg/dL Calcium 8.7 8.4 L (8.5-10.1) mg/dL AST 19 (15-37) U/L ALT 15 (10-53) U/L Alkaline Phosphatase 92 (45-117) U/L Total Protein 7.5 (6.4-8.2) g/dL Albumin 3.3 L (3.4-5.0) g/dL Intake and Output 02/25/18 02/26/18 02/26/18 22:59 06:59 14:59 Output Total 1000 / 1000 400 / 400 Balance -1000 / -1000 -400 / -400 Output: Urine 1000 / 1000 Urine Amount (Catheter) 400 / 400 Female External 400 / 400 Other: # Bowel Movements 0 Weight 75.5 kg - Imaging and Cardiology Imaging: Impressions Chest X-Ray 02/24/18 13:47 CONCLUSION: Negative examination. Assessment and Plan - Assessment (1) Sinus bradycardia Code(s): R00.1 - Bradycardia, unspecified Status: Acute (2) Left bundle branch block Code(s): I44.7 - Left bundle-branch block, unspecified Status: Acute (3) Dementia Code(s): F03.90 - Unspecified dementia without behavioral disturbance Status: Acute (4) Atypical chest pain Code(s): R07.89 - Other chest pain Status: Acute (5) Hypokalemia Code(s): E87.6 - Hypokalemia Status: Acute - Plan Bradycardia not severe enough to require pacemaker. Chest pain was very atypical and with her dementia would not pursue further with stress testing. Once K= OK OK with me to DC home.
[2018-02-26] MEDS: amLODIPine 10 MG Tablet PO SCH (08:25)
[2018-02-26] MEDS: hydrALAZINE 25 MG Tablet PO SCH (08:25)
--- NOTE | 2018-02-26 08:57 | P.PNIM ---
Subjective Interval history: Follow-up for bradycardia and chest pain No chest pain overnight, bradycardia only when sleeping. Currently awake, heart rate in the high 60s. No shortness of breath. Physical Exam Vital signs: Vital Signs 02/25/18 12:00 02/25/18 12:09 02/25/18 16:00 Temperature 98.4 F 98.1 F Pulse Rate 39 L 51 L Respiratory Rate 15 15 Blood Pressure 171/71 H 158/70 H Pulse Oximetry 100 98 100 02/25/18 20:00 02/25/18 21:17 02/25/18 22:00 Temperature 98.5 F Pulse Rate 50 L 50 L 66 Respiratory Rate 14 19 Blood Pressure 155/94 H Pulse Oximetry 02/25/18 23:00 02/25/18 23:01 02/26/18 00:00 Temperature 98.2 F Pulse Rate 49 L 50 L 50 L Respiratory Rate 13 13 12 Blood Pressure 141/65 H 144/65 H Pulse Oximetry 100 100 100 02/26/18 01:00 02/26/18 02:00 02/26/18 02:12 Temperature 98 F Pulse Rate 60 47 L 49 L Respiratory Rate 15 15 16 Blood Pressure 141/73 H 142/66 H Pulse Oximetry 100 100 100 02/26/18 03:00 02/26/18 03:01 02/26/18 03:32 Temperature Pulse Rate 50 L 51 L 61 Respiratory Rate 16 25 H 14 Blood Pressure 184/77 H 184/80 H Pulse Oximetry 100 100 100 02/26/18 03:55 02/26/18 04:00 02/26/18 05:00 Temperature Pulse Rate 72 68 67 Respiratory Rate 21 16 12 Blood Pressure 165/72 H Pulse Oximetry 100 100 99 Intake & Output 02/25/18 02/26/18 02/26/18 18:59 06:59 18:59 Output Total 1000 / 1000 400 / 400 Balance -1000 / -1000 -400 / -400 Weight 75.5 kg 75.5 kg Output: Urine 1000 / 1000 Urine Amount (Catheter) 400 / 400 Female External 400 / 400 Other: # Bowel Movements 0 Narrative: Not in distress, well-nourished, looks stated age PERRL, pink conjunctiva without injection, anicteric Normal rate and regular rhythm, no murmurs gallops or rubs appreciated. Clear to auscultation and symmetric bilaterally, normal respiratory effort. Normal bowel sounds, soft, non-tender, nondistended, no guarding. No edema Alert awake and oriented to self and place, moves extremities. - Urinary Catheter Management Female External Cath placed during this visit: no Results - Labs CBC & Chem 7: 02/24/18 12:50 02/25/18 20:36 Laboratory Results - last 24 hr 02/25/18 02/25/18 02/25/18 12:20 12:44 20:36 Sodium 143 Potassium 3.0 L Chloride 106 Carbon Dioxide 27.6 Anion Gap 9 BUN 17 Creatinine 1.01 H Estimated GFR 65 L POC Glucose 91 Random Glucose 73 L Calcium 8.4 L Magnesium Total Creatine Kinase 143 Troponin I Less than 0.02 L Nasal Screen MRSA (PCR) Not detected 02/25/18 02/26/18 20:36 01:32 Sodium Potassium Chloride Carbon Dioxide Anion Gap BUN Creatinine Estimated GFR POC Glucose Random Glucose Calcium Magnesium 1.8 Total Creatine Kinase 146 Troponin I Less than 0.02 L Nasal Screen MRSA (PCR) Assessment and Plan - Plan This is a 72-year-old female with history of hypertension, and dyslipidemia presenting with a typical chest pain and now admitted because of bradycardia Sinus bradycardia-unknown etiology, repeat EKG and troponin unremarkable, cardiology consulted, likely physiological, no further stress testing because of dementia. Typical chest pain-ACS ruled out with 3 sets of EKG and cardiac enzymes. Per cardiology, hold off any other stress testing. Hypertension-continue Norvasc and triamterene/hydrochlorothiazide. Dyslipidemia-continue simvastatin Anemia-stable Hypokalemia-replace, recheck, replace as needed, if more than 4.0, may discharge. Chronic renal insufficiency-baseline unknown, repeat BMP pending. DVT prophylaxis: Heparin Cleared by cardiology for discharge of potassium is good.
--- NOTE | 2018-02-26 09:02 | P.DS ---
Date of admission: 02/24/18 14:21 Primary care physician: Kesha Loyd DO Attending physician on discharge: Elpidio Mata Anticipated date of discharge: 02/26/18 Brief History from admission: 72-year-old female with history of hypertension, left bundle branch block, hyperlipidemia, and GERD presents emergency room for further evaluation of nonexertional, sudden chest pain. Onset noon, after eating lunch. Location substernal and right anterior chest. Radiation to right shoulder/elbow. Characterizes as sharp. Moderate in severity. No associated symptoms of nausea, vomiting, dyspnea, or diaphoresis. Duration of intense pain 5-10 minutes, gradually and completely resolving after 15 minutes. No precipitating or relieving factors. Denies similar pain in the past. No further chest discomfort. No known heart disease. Denied burning sensation or sour taste. No recent illness or injury. Patient required redirection when obtaining history, looks to family members for answers of many questions. Daughter and brother at bedside assisting with medical history. Past cardiac testing No recent cardiac testing. No records of Lexiscan in [place] records. 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 11/23/2013 Echocardiogram-Estimated ejection fraction 55-60%. Systolic function normal. 11/22/2013 Carotids US-mild plaquing with no evidence of a hemodynamically significant lesion. Loop recorder placed 2013, removed 2015 Social history Known hypertension and hyperlipidemia. Reports "borderline" diabetes. No known coronary artery disease. Lifelong non-smoker. No alcohol or recreational drug use. Lives with daughter. Endorses having a large supportive family. Family history Noncontributory for early onset cardiovascular disease. Mother age 64-[place] Brother CABG age 68 DS: Diagnosis - Discharge Diagnosis (1) Atypical chest pain Status: Acute (2) Renal insufficiency Status: Chronic (3) Sinus bradycardia Status: Acute DS: Medications - Discharge Medications Prescriptions: hydralazine 50 mg PO TID #90 tab DS: Summary Hospital Course: This is a 72-year-old female with history of hypertension, and dyslipidemia presenting with a typical chest pain and subsequently admitted because of bradycardia. ACS ruled out with 3 sets of EKG and cardiac enzymes. While doing the Lexiscan, patient became bradycardic. Cardiology was reconsulted. Unknown etiology, could be physiological. No further stress testing per Dr. Milton because of diagnosis of dementia. Continue simvastatin. Continue Norvasc and Dyazide for hypertension. Hydralazine was added for blood pressure control. Once potassium was replaced, patient was discharged. - Time Spent with Patient Total time spent providing and/or coordinating discharge services: Greater than 30 minutes - Quality: VTE Deep Vein Thrombosis/Pulmonary Embolism Present on Admission: No Exam Vital signs: Vital Signs 02/25/18 12:00 02/25/18 12:09 02/25/18 16:00 Temperature 98.4 F 98.1 F Pulse Rate 39 L 51 L Respiratory Rate 15 15 Blood Pressure 171/71 H 158/70 H Pulse Oximetry 100 98 100 02/25/18 20:00 02/25/18 21:17 02/25/18 22:00 Temperature 98.5 F Pulse Rate 50 L 50 L 66 Respiratory Rate 14 19 Blood Pressure 155/94 H Pulse Oximetry 02/25/18 23:00 02/25/18 23:01 02/26/18 00:00 Temperature 98.2 F Pulse Rate 49 L 50 L 50 L Respiratory Rate 13 13 12 Blood Pressure 141/65 H 144/65 H Pulse Oximetry 100 100 100 02/26/18 01:00 02/26/18 02:00 02/26/18 02:12 Temperature 98 F Pulse Rate 60 47 L 49 L Respiratory Rate 15 15 16 Blood Pressure 141/73 H 142/66 H Pulse Oximetry 100 100 100 02/26/18 03:00 02/26/18 03:01 02/26/18 03:32 Temperature Pulse Rate 50 L 51 L 61 Respiratory Rate 16 25 H 14 Blood Pressure 184/77 H 184/80 H Pulse Oximetry 100 100 100 02/26/18 03:55 02/26/18 04:00 02/26/18 05:00 Temperature Pulse Rate 72 68 67 Respiratory Rate 21 16 12 Blood Pressure 165/72 H Pulse Oximetry 100 100 99 Intake & Output 02/25/18 02/26/18 02/26/18 18:59 06:59 18:59 Output Total 1000 / 1000 400 / 400 Balance -1000 / -1000 -400 / -400 Weight 75.5 kg 75.5 kg Output: Urine 1000 / 1000 Urine Amount (Catheter) 400 / 400 Female External 400 / 400 Other: # Bowel Movements 0 Narrative: Not in distress, well-nourished, looks stated age PERRL, pink conjunctiva without injection, anicteric Normal rate and regular rhythm, no murmurs gallops or rubs appreciated. Clear to auscultation and symmetric bilaterally, normal respiratory effort. Normal bowel sounds, soft, non-tender, nondistended, no guarding. No edema Alert awake and oriented to self and place, moves extremities. Results Procedures completed during hospitalization: None Labs on day of discharge: Labs from last 24 hours 02/26/18 02/25/18 02/25/18 01:32 20:36 20:36 Sodium 143 Potassium 3.0 L Chloride 106 Carbon Dioxide 27.6 Anion Gap 9 BUN 17 Creatinine 1.01 H Estimated GFR 65 L POC Glucose Random Glucose 73 L Calcium 8.4 L Magnesium 1.8 Total Creatine Kinase 146 143 Troponin I Less than 0.02 L Less than 0.02 L Nasal Screen MRSA (PCR) 02/25/18 02/25/18 12:44 12:20 Sodium Potassium Chloride Carbon Dioxide Anion Gap BUN Creatinine Estimated GFR POC Glucose 91 Random Glucose Calcium Magnesium Total Creatine Kinase Troponin I Nasal Screen MRSA (PCR) Not detected - Impressions ITS Impressions Chest X-Ray 02/24/18 13:47 CONCLUSION: Negative examination. Discharge Plan - Discharge Disposition Patient Disposition: Discharge Home - Discharge Condition Condition: Stable - Discharge Order Discharge Orders: Discharge Order (Routine); Ordered 02/26/18 Ordered By: Elpidio Mata Cardiology Clear for Discharge (Routine); Ordered 02/26/18 Ordered By: Bruce Milton - Discharge Details Anticipated Discharge Date: 02/26/18 Discharge Comment: d/c if K=/>4.0 - Physicians Team Primary Care Provider: Kesha Loyd Attending Provider: Elpidio Mata Other Providers: Matthieu Sommers ; Bruce Milton MD ; Elpidio Mata MD
[2018-02-26 09:16] LABS: Baso % (Auto) 0.5 % (0.0-2.0); Eos # (Auto) 0.1 th/mm3 (0.0-0.4); Hemoglobin 11.9 gm/dL (11.6-15.3); Lymph # (Auto) 1.7 th/mm3 (1.0-4.8); Lymph % (Auto) 28.5 % (9.0-44.0); Mean Corpuscular HGB Conc 34.1 % (32.0-36.0); Mean Corpuscular Volume 96.7 fL (80.0-100.0); Mean Platelet Volume 8.3 fL (7.0-11.0); Mono # (Auto) 0.4 th/mm3 (0.0-0.9); Mono % (Auto) 7.2 % (0.0-8.0); Neut # (Auto) 3.8 th/mm3 (1.8-7.7); Neut % (Auto) 61.8 % (16.0-70.0); Platelet Count 205 th/mm3 (150-450); Red Blood Count 3.62 mil/mm3 (4.00-5.30); Red Cell Distribution Width 13.6 % (11.6-17.2); White Blood Count 6.1 th/mm3 (4.0-11.0)
[2018-02-26 10:29] LABS: Anion Gap 5 meq/L (5-15); Blood Urea Nitrogen 15 mg/dL (7-18); Calcium 8.9 mg/dL (8.5-10.1); Carbon Dioxide 31.6 meq/L (21.0-32.0); Chloride 107 meq/L (98-107); Glomerular Filtration Rate 61 mL/min (>89); Glucose,Random 83 mg/dL (74-106); Potassium 4.1 meq/L (3.5-5.1); Sodium 144 meq/L (136-145)
[2018-02-26 10:51] VITALS: BP 171/72; PULSE 52; TEMP 98
--- NOTE | 2018-02-26 16:08 | ECG ---
Date Performed: 02/25/2018 Time Performed: 19:30:32 PTAGE: 72 years EKG: SINUS BRADYCARDIA INTRAVENTRICULAR CONDUCTION DELAY Since previous tracing, no significant change noted ABNORMAL ECG PREVIOUS TRACING : 02/25/2018 12.49 DOCTOR: Leodan Mcclellan Interpretating Date/Time 02/26/2018 16:08:13
--- NOTE | 2018-02-26 16:08 | ECG ---
Date Performed: 02/25/2018 Time Performed: 12:49:24 PTAGE: 72 years EKG: Sinus bradycardia with borderline 1st degree A-V block. Left bundle branch block Since prev ious tracing, no significant change noted Abnormal ECG PREVIOUS TRACING : 02/24/2018 22.10 DOCTOR: Leodan Mcclellan Interpretating Date/Time 02/26/2018 16:08:02
== END 2018-02-26 13:10 | disposition home or self-care (01) ==
LOC: NEPE 12:17 → NEDA 12:17 → NEPFCDU 16:09 → HIMC 02-25 12:10
PROVIDERS: ADMIT Hospitalist; ATTEND Hospitalist